=== PATIENT | female | born 1970 | race Two or more races ===

== ENCOUNTER 2023-01-26 05:59 | Day surgery (SDC) | payer OTHER ==
[~2023-01-26] VITALS: Ht 152.4 cm; Wt 64.9 kg
[~2023-01-26 05:59] MED LIST: ALEVE220 M1 PO; CEFADROXIL500 MG PO; CRESTOR5 MG PO; DEPO-MEDRO40 MG/1 ML IJ; PERCOCET 10-3251 TAB PO; PREMPRO 0.3 MG/1 TAB PO; PREMPRO 0.45/1.1 TAB; RINVOQ ER15 MG PO; SYNTHROID88 MCG PO; [UNRECOGNIZED DRUG - OTHER]; [UNRECOGNIZED DRUG - OTHER]
== END 2023-01-26 10:35 | disposition home or self-care (01) ==
LOC: CIR.AMB 05:59
PROVIDERS: ATTEND Orthopaedic Surgery
DX: M75.121 Complete rotator cuff tear or rupture of right shoulder, not specified as traumatic (principal); M24.111 Other articular cartilage disorders, right shoulder; M75.21 Bicipital tendinitis, right shoulder; I10 Essential (primary) hypertension; Z20.822 Contact with and (suspected) exposure to COVID-19; M06.9 Rheumatoid arthritis, unspecified

== ENCOUNTER 2024-01-18 05:10 | Day surgery (SDC) | payer OTHER ==
[~2024-01-18] VITALS: Ht 152.4 cm; Wt 59.4 kg
[~2024-01-18 05:10] MED LIST changes: +ALLERGY RELIEF10 M3 PO; +CELEBREX200MG PO; +HYDROCHLOROTHIA25 MG PO; +LYRICA20 MG/1 ML PO; +METAXALONE800 MG PO; +OTEZLA30 MG PO; +PLAQUENIL; +TREXALL5 MG PO
[2024-01-18] MEDS ORDERED: CEFAZOLIN SODIUM 1,000 MG VIAL ONE (06:03)
[2024-01-18] MEDS ORDERED: KETOROLAC TROMETHAMINE 30 MG VIAL ONE (07:07)
[2024-01-18] MEDS ORDERED: BUPIVACAINE HCL 0.5% 50ML VIAL ONE (07:07)
[2024-01-18] MEDS ORDERED: LIDOCAINE HCL 1%/EPINEPHRINE 20ML VIAL IJ ONE (07:08)
[2024-01-18] MEDS ORDERED: ISOPROPYL ALCOHOL 30 ML OUNCE TOP ONE (08:30)
[2024-01-18] MEDS ORDERED: KETOROLAC TROMETHAMINE 30 MG VIAL IM ONE (08:30)
[2024-01-18] MEDS ORDERED: CEFAZOLIN SODIUM 1,000 MG VIAL IV ONE (08:30)
[2024-01-18] MEDS ORDERED: BUPIVACAINE HCL 30 ML VIAL IJ ONE (08:30)
[2024-01-18] MEDS ORDERED: KETOROLAC TROMETHAMINE 30 MG VIAL IJ ONE (08:30)
[2024-01-18] MEDS ORDERED: LIDOCAINE HCL 1% 20ML VIAL IJ ONE (08:30)
== END 2024-01-18 11:05 | disposition home or self-care (01) ==
LOC: CIR.AMB 05:10
PROVIDERS: ATTEND Orthopaedic Surgery
DX: M75.122 Complete rotator cuff tear or rupture of left shoulder, not specified as traumatic (principal); M89.1 Physeal arrest; M75.22 Bicipital tendinitis, left shoulder; M75.02 Adhesive capsulitis of left shoulder; I10 Essential (primary) hypertension; E03.9 Hypothyroidism, unspecified; M06.9 Rheumatoid arthritis, unspecified; K21.9 Gastro-esophageal reflux disease without esophagitis; K29.70 Gastritis, unspecified, without bleeding